=== PATIENT | female | born 1940 | race Caucasian/White ===

== ENCOUNTER → 2023-07-25 11:05 | Outpatient (REF) | payer MEDICARE, OTHER, SELFPAY ==
[2023-07-25 16:17] LABS: % Basophils 0.5 % (0-2); % Eosinophils 2.9 % (0-6); % Immature Granulocytes 0.4 % (0-0.5); % Lymphocytes 31.7 % (20.5-51.1); % Monocytes 6.3 % (1.7-9.3); % Neutrophils 58.2 % (42.2-75.2); Absolute Eosinophils 0.2 10^3/uL (0-0.7); Absolute Lymphocytes 2.3 10^3/uL (1.2-3.4); Absolute Monocytes 0.5 10^3/uL (0.1-0.6); Absolute Neutrophils 4.2 10^3/uL (1.4-6.5); Hematocrit 36.8 % (37.0-47.0); Hemoglobin 11.2 g/dL (12.0-16.0); Mean Corp Hgb Conc. 30.4 g/dL (33.0-37.0); Mean Corpuscular Hgb 18.2 pg (27.0-31.0); Mean Corpuscular Volume 59.8 fL (81.0-99.0); Nucleated Red Blood Cells % 0 %; Red Blood Cell Count 6.15 10^6/uL (4.20-5.40); Red Cell Dist. Width 18.6 % (11.5-14.5); White Blood Cell Count 7.3 10^3/uL (4.8-10.8)
[2023-07-25 16:32] LABS: ALT (SGPT) 21 U/L (0-35); AST (SGOT) 28 U/L (14-36); Albumin 4.2 g/dl (3.5-5.0); Alkaline Phosphatase 96 U/L (38-126); Blood Urea Nitrogen 19 mg/dl (7-17); Calcium 10.2 mg/dl (8.4-10.2); Carbon Dioxide 29 mmol/L (22-30); Chloride 108 mmol/L (98-107); Glucose 81 mg/dl (70-99); Iron 125 ug/dl (37-170); Sodium 138 mmol/L (135-145); Total Bilirubin 0.7 mg/dl (0.2-1.3); Total Protein 6.8 g/dl (6.3-8.2); eGFR > 60.00
[2023-07-25 16:37] LABS: Platelet Count 138 10^3/uL (130-400); Potassium 4.4 mmol/L (3.5-5.1)
[2023-07-25 16:40] LABS: Percent Saturation 41 % (20-50); Total Iron Binding Capacity 300 ug/dl (265-497)
[2023-07-25 16:59] LABS: TSH Reflex To Free T4 0.78 uIU/ml (0.47-4.68)
[2023-07-25 17:19] LABS: Vitamin B12 421 pg/ml (239-931)
== END ==
LOC: HWLAB 11:05
PROVIDERS: ATTENDING PHYSICIAN Student in an Organized Health Care Education/Training Program
DX: Z00.00 Encounter for general adult medical examination without abnormal findings (principal); D50.9 Iron deficiency anemia, unspecified; K64.3 Fourth degree hemorrhoids
CPT/HCPCS: 36415; 80053; 82607; 82728; 83540; 83550; 84443; 85025

== ENCOUNTER → 2023-11-01 09:48 | Outpatient (REF) | payer MEDICARE, OTHER, SELFPAY | LOC: HWRAD 09:48 | PROVIDERS: ATTENDING PHYSICIAN Internal Medicine Critical Care Medicine; FAMILY PHYSICIAN Student in an Organized Health Care Education/Training Program | DX: R91.8 Other nonspecific abnormal finding of lung field (principal) | CPT/HCPCS: 71250 ==

== ENCOUNTER 2023-11-16 19:11 | Emergency (ER) | payer MEDICARE, OTHER, SELFPAY ==
[2023-11-16 19:16] VITALS: BP 201/81
--- NOTE | 2023-11-16 21:05 | ED.MUSCINJ ---
HPI-Injury
General
Chief Complaint: Musculo-Skeletal Complaint
Source: patient
Exam Limitations: none
Time Seen by Provider: 11/16/23 20:49
Travel History
Have you had any contact with someone who has COVID-19?: No
Do you have any symptoms of coronavirus? Fever > 100 degrees, chills, cough, shortness of breath, sore throat, loss of taste or smell, muscle aches, or headache?: No
History of Present Illness-Injury
Initial Injury comments:
83-year-old [id number] female presents after mechanical fall. She slipped on wet floor and landed on her right hand she complains of right hand and wrist pain. She did not hit her head. No other complaints at this time
Past History
Past History
ED Past Medical History: None
ED Past Surgical History: None
Patient has exhibited threatening behavior?: No
PSI?: No
Phy Exam
Physical Exam
Physical Exam:
General: Well-appearing female no acute respiratory distress
HEENT: Normocephalic atraumatic
Musculoskeletal exam: Right hand swollen tender over the ulnar aspect of the hand no deformities or malrotation the right wrist is nontender
Neurologic: Good sensation right hand
Injury Course
Orders/Labs/Results
Orders:
Orders
11/16/23 19:17
CR Hand - Right Min 3 Views Urgent
Comment:
Reason For Exam: fall, injury
CR Wrist - Right Min 3 Views Urgent
Comment:
Reason For Exam: fall, injury
MDM/Problems Addressed
Differential Diagnosis Includes:
Right hand pain after fall. Consider fracture versus dislocation versus sprain
I personally visualized x-rays of the right wrist and hand which demonstrate a fracture of the fifth metacarpal.
I personally placed the patient in a ulnar gutter splint using cast padding 2 inch OCL and Klaus bandages. She was neurovascular intact after the splint was applied. She was referred to orthopedics for further evaluation
*Critical Care Note
Total Time (30-74mins, 75-104mins- exclusive of procedures): Not Applicable
ED Attending Note
-
Portions of this chart may have been created with voice recognition software.� Occasional wrong word or��sound alike� substitutions may have occurred due to the inherent limitations of voice recognition software.
Discharge Plan
Departure
Patient Disposition: Home (Routine Discharge)
Date of Disposition: 11/16/23
Time of Disposition: 21:07
Patient with high blood pressure during this ER visit?: No
Discharge Problem:
Fracture of hand
Instructions: Splint Care
Referrals:
Flroy Murray MD [Family Provider] -
Ambrosio Mayorga MD [Active] -
Activity Restrictions/Additional Instructions:
Keep splint on and dry. Elevate for swelling. Use Tylenol for pain. Follow-up with orthopedics for further evaluation
Interventions
Interventions:
*Risk Screen - Suicide Last Done: 11/16/23 19:15
*General Assessment Last Done: 11/16/23 19:15
*Neglect/Abuse Screening Last Done: 11/16/23 19:15
*ED COVID-19 Vaccine History Last Done: 11/16/23 19:15
Discharge Date and Time
Print Language: FAROESE
[2023-11-16 21:22] VITALS: BP 174/80
== END 2023-11-16 21:21 | disposition home or self-care (01) ==
LOC: EMR 19:11
PROVIDERS: EMERGENCY PHYSICIAN Student in an Organized Health Care Education/Training Program; FAMILY PHYSICIAN Student in an Organized Health Care Education/Training Program
DX: S62.394A Other fracture of fourth metacarpal bone, right hand, initial encounter for closed fracture (principal); S62.396A Other fracture of fifth metacarpal bone, right hand, initial encounter for closed fracture; W01.0XXA Fall on same level from slipping, tripping and stumbling without subsequent striking against object, initial encounter; M79.641 Pain in right hand; S69.91XA Unspecified injury of right wrist, hand and finger(s), initial encounter
CPT/HCPCS: 99283; 29125; 73110; 73130

== ENCOUNTER → 2024-09-24 09:32 | Outpatient (REF) | payer MEDICARE, OTHER, SELFPAY ==
[2024-09-24 12:50] LABS: % Basophils 0.5 % (0-2); % Eosinophils 3.8 % (0-6); % Immature Granulocytes 0.3 % (0-0.5); % Lymphocytes 27.8 % (20.5-51.1); % Monocytes 5.7 % (1.7-9.3); % Neutrophils 61.9 % (42.2-75.2); Absolute Eosinophils 0.2 10^3/uL (0-0.7); Absolute Lymphocytes 1.7 10^3/uL (1.2-3.4); Absolute Monocytes 0.3 10^3/uL (0.1-0.6); Absolute Neutrophils 3.7 10^3/uL (1.4-6.5); Hematocrit 39.7 % (37.0-47.0); Hemoglobin 11.8 g/dL (12.0-16.0); Mean Corp Hgb Conc. 29.7 g/dL (33.0-37.0); Mean Corpuscular Volume 60.4 fL (81.0-99.0); Nucleated Red Blood Cells % 0 %; Platelet Count 149 10^3/uL (130-400); Red Blood Cell Count 6.57 10^6/uL (4.20-5.40); Red Cell Dist. Width 18.5 % (11.5-14.5)
[2024-09-24 13:10] LABS: ALT (SGPT) 24 U/L (0-35); AST (SGOT) 26 U/L (14-36); Albumin 4.6 g/dl (3.5-5.0); Alkaline Phosphatase 94 U/L (38-126); Blood Urea Nitrogen 19 mg/dl (7-17); Calcium 11.2 mg/dl (8.4-10.2); Carbon Dioxide 28 mmol/L (22-30); Chloride 105 mmol/L (98-107); Glucose 82 mg/dl (70-99); Potassium 4.7 mmol/L (3.5-5.1); Sodium 142 mmol/L (135-145); Total Bilirubin 0.8 mg/dl (0.2-1.3); Total Protein 7.2 g/dl (6.3-8.2); eGFR > 60.00
== END ==
LOC: HWRAD 09:32
PROVIDERS: ATTENDING PHYSICIAN Internal Medicine; FAMILY PHYSICIAN Student in an Organized Health Care Education/Training Program
DX: M25.562 Pain in left knee (principal); D50.9 Iron deficiency anemia, unspecified
CPT/HCPCS: 36415; 73564; 80053; 85025

== ENCOUNTER → 2024-09-27 10:13 | Outpatient (REF) | payer MEDICARE, OTHER, SELFPAY ==
[2024-09-27 13:27] LABS: Calcium 10.6 mg/dl (8.4-10.2)
[2024-09-28 09:34] LABS: Intact PTH 164.4 pg/ml (13.6-85.8)
== END ==
LOC: HWLAB 10:13
PROVIDERS: ATTENDING PHYSICIAN Student in an Organized Health Care Education/Training Program
DX: E83.52 Hypercalcemia (principal)
CPT/HCPCS: 36415; 83970

== ENCOUNTER → 2024-11-01 09:02 | Outpatient (REF) | payer MEDICARE, OTHER, SELFPAY ==
[2024-11-01 12:57] LABS: Albumin 4.5 g/dl (3.5-5.0); Blood Urea Nitrogen 20 mg/dl (7-17); Calcium 10.7 mg/dl (8.4-10.2); Carbon Dioxide 27 mmol/L (22-30); Chloride 108 mmol/L (98-107); Glucose 77 mg/dl (70-99); Phosphorus 3.1 mg/dl (2.5-4.5); Potassium 4.4 mmol/L (3.5-5.1); Sodium 142 mmol/L (135-145); eGFR > 60.00
[2024-11-02 11:06] LABS: Intact PTH 86.9 pg/ml (13.6-85.8)
== END ==
LOC: HWRAD 09:02
PROVIDERS: ATTENDING PHYSICIAN Student in an Organized Health Care Education/Training Program
DX: E21.3 Hyperparathyroidism, unspecified (principal)
CPT/HCPCS: 36415; 76536; 80069; 83970

== ENCOUNTER → 2024-12-04 09:18 | Outpatient (REF) | payer MEDICARE, OTHER, SELFPAY ==
[2024-12-04 09:39] VITALS: BP 162/97; BP_SYST 55
[2024-12-04 10:25] VITALS: BP 151/97; BP_SYST 66
[2024-12-04 10:36] VITALS: BP 151/97
--- NOTE | 2024-12-04 10:53 | PTCARENOTE ---
IRAD note: [facility] Kaur was at bedside for left neck lesion biopsy but Dr. Russo didn't feel a need for [facility] for this biopsy. samples collected in [facility] using FNA.
== END ==
LOC: RADI 09:18
PROVIDERS: ATTENDING PHYSICIAN Student in an Organized Health Care Education/Training Program
DX: E04.1 Nontoxic single thyroid nodule (principal)
CPT/HCPCS: 88173; 88305; 10005

== ENCOUNTER → 2025-05-20 13:37 | Outpatient (REF) | payer MEDICARE, OTHER, SELFPAY | LOC: RAD 13:37 | PROVIDERS: ATTENDING PHYSICIAN Physician Assistant; FAMILY PHYSICIAN Student in an Organized Health Care Education/Training Program | DX: R07.9 Chest pain, unspecified (principal) | CPT/HCPCS: 71046 ==

== ENCOUNTER 2025-05-23 13:12 | Emergency (ER) | payer MEDICARE, OTHER, SELFPAY ==
[2025-05-23 13:14] VITALS: BP 149/99
[2025-05-23 13:50] LABS: Hematocrit 40.6 % (37.0-47.0); Hemoglobin 12.3 g/dL (12.0-16.0); Mean Corp Hgb Conc. 30.3 g/dL (33.0-37.0); Mean Corpuscular Volume 60.1 fL (81.0-99.0); Nucleated Red Blood Cells % 0 %; Platelet Count 146 10^3/uL (130-400); Red Cell Dist. Width 17.8 % (11.5-14.5)
[2025-05-23 13:55] LABS: ALT (SGPT) 21 U/L (0-35); AST (SGOT) 24 U/L (14-36); Albumin 4.7 g/dl (3.5-5.0); Alkaline Phosphatase 98 U/L (38-126); Blood Urea Nitrogen 20 mg/dl (7-17); Calcium 10.4 mg/dl (8.4-10.2); Carbon Dioxide 31 mmol/L (22-30); Chloride 103 mmol/L (98-107); Glucose 138 mg/dl (70-99); Lipase 74 U/L (23-300); Potassium 4.0 mmol/L (3.5-5.1); Sodium 137 mmol/L (135-145); Total Protein 7.6 g/dl (6.3-8.2); eGFR > 60.00
--- NOTE | 2025-05-23 16:50 | ED.GENMED ---
History of Present Illness
<Ruby Gaffney MD, Resident - Last Filed: 05/23/25 19:14>
General
Chief Complaint: Abdominal Pain
Source: patient
Time Seen by Provider: 05/23/25 16:15
History of Present Illness
History of Present Illness:
Patient is an 85-year-old female, with past medical history significant for chronic cough, lung nodules, porokeratosis, benign breast nodule s/p resection 1971, currently not taking any medications except fiber, vitamin D, and as needed famciclovir
for cold sores.
Healthcare with complaint of abdominal pain and left upper quadrant under the breast.
The pain has been there for last 3 weeks, rates 5/10, constant, dull in nature, and noticed it to radiate to his back today. Denies any rash/vesicles observed at any time, fall, trauma, fever, chills, shortness of breath, chest pain, body aches,
burning micturition, recent weight gain or loss.
Vitally stable.
Past History
<Ruby Gaffney MD, Resident - Last Filed: 05/23/25 19:14>
Past History
ED Past Medical History: None
ED Past Surgical History: None
Patient has exhibited threatening behavior?: No
PSI?: No
Social History
Tobacco: Former smoker
Alcohol: Occasional
Drug: None
Living: with family
Review of Systems
<Ruby Gaffney MD, Resident - Last Filed: 05/23/25 19:14>
Review of Systems
All Other Systems: ROS reviewed and negative except as documented in HPI and ROS
Phy Exam
<Ruby Gaffney MD, Resident - Last Filed: 05/23/25 19:14>
General Physical Exam
General Presentation: well appearing and no apparent distress
General age: appears stated age
General Skin: warm and dry
General Habitus: normal
General Mental: alert
Cardiovascular Exam
Cardiovascular Exam: regular rate/rhythm, no edema, no gallop and no murmur
Pulmonary Exam
Pulmonary Exam: lungs clear, no respiratory distress, no rales, no crackles and no rhonchi
Gastrointestinal Exam
Gastrointestinal Exam: normal bowel sounds, non tender and soft
Neurological Exam
Neurological Exam: alert, oriented x3 and no motor deficits
Musculoskeletal Exam
Musculoskeletal Exam: full ROM
Skin Exam
Skin Exam: normal color and warm/dry
Psychiatric Exam
Psychiatric Exam: normal mood/affect
Course
<Ruby Gaffney MD, Resident - Last Filed: 05/23/25 19:14>
Orders/Labs/Results
Orders:
Orders
05/23/25 13:27
Complete Blood Count/With Diff Urgent
Comprehensive Metabolic Panel Urgent
Lipase Urgent
05/23/25 14:43
ECG [Electrocardiogram (*1)] Urgent
Reason for Study: Abdominal Pain
EKG- Treatment ONCE
05/23/25 17:04
Troponin I Urgent
05/23/25 18:24
Valacyclovir HCl [Valtrex] 1,000 mg PO NOW ONE
Abnormal Lab Results
05/23/25
13:27
RBC 6.76 H 10^6/uL
(4.20-5.40)
MCV 60.1 L fL
(81.0-99.0)
MCH 18.2 L pg
(27.0-31.0)
MCHC 30.3 L g/dL
(33.0-37.0)
RDW 17.8 H %
(11.5-14.5)
Carbon Dioxide 31 H mmol/L
(22-30)
BUN 20 H mg/dl
(7-17)
Glucose 138 H mg/dl
(70-99)
Calcium 10.4 H mg/dl
(8.4-10.2)
05/23/25 13:27
05/23/25 13:27
Vital Signs
Initial and Last Documented VS:
Initial Vital Signs
Temp Pulse Resp BP Pulse Ox
98.0 F 84 18 149/99 97
05/23/25 13:14 05/23/25 13:14 05/23/25 13:14 05/23/25 13:14 05/23/25 13:14
Last Documented Vital Signs
Temp Pulse Resp BP Pulse Ox
98.6 F 66 18 194/78 97
05/23/25 17:15 05/23/25 18:30 05/23/25 18:30 05/23/25 17:15 05/23/25 18:30
<Tracy Tom MD - Last Filed: 05/23/25 18:26>
Orders/Labs/Results
Orders:
Orders
05/23/25 13:27
Complete Blood Count/With Diff Urgent
Comprehensive Metabolic Panel Urgent
Lipase Urgent
05/23/25 14:43
ECG [Electrocardiogram (*1)] Urgent
Reason for Study: Abdominal Pain
EKG- Treatment ONCE
05/23/25 17:04
Troponin I Urgent
05/23/25 18:24
Valacyclovir HCl [Valtrex] 1,000 mg PO NOW ONE
Abnormal Lab Results
05/23/25
13:27
RBC 6.76 H 10^6/uL
(4.20-5.40)
MCV 60.1 L fL
(81.0-99.0)
MCH 18.2 L pg
(27.0-31.0)
MCHC 30.3 L g/dL
(33.0-37.0)
RDW 17.8 H %
(11.5-14.5)
Carbon Dioxide 31 H mmol/L
(22-30)
BUN 20 H mg/dl
(7-17)
Glucose 138 H mg/dl
(70-99)
Calcium 10.4 H mg/dl
(8.4-10.2)
05/23/25 13:27
05/23/25 13:27
Vital Signs
Initial and Last Documented VS:
Initial Vital Signs
Temp Pulse Resp BP Pulse Ox
98.0 F 84 18 149/99 97
05/23/25 13:14 05/23/25 13:14 05/23/25 13:14 05/23/25 13:14 05/23/25 13:14
Last Documented Vital Signs
Temp Pulse Resp BP Pulse Ox
98.6 F 66 18 194/78 97
05/23/25 17:15 05/23/25 18:30 05/23/25 18:30 05/23/25 17:15 05/23/25 18:30
<Ruby Gaffney MD, Resident - Last Filed: 05/23/25 19:14>
MDM/Problems Addressed
Differential Diagnosis Includes:
Acute coronary syndrome
Shingles
Pancreatitis
Gastritis
IBS
Costochondritis
Splenic flexure syndrome
Splenic pathology from systemic disease for example infection/malignancy
UTI
Nephrolithiasis
MDM/Problems Addressed:
Cardiac testing including troponin, EKG came back normal. Lipase levels normal, signs and symptoms not suggestive of any nephrolithiasis/splenic pathology/IBS
On physical examination, dermatomal rash observed in the area of pain on back
Patient given a dose of Valtrex in the ER
Reassurance provided, continue Valtrex 1000 mg 3 times daily for 10 days along with gabapentin at nighttime for pain
Discussed that she can hang out with friends and family as long as her rash is covered
Advised to complete the course of antivirals
<Ruby Gaffney MD, Resident - Last Filed: 05/23/25 19:14>
*Pulse Oximetry
SaO2: 97
Oxygen Mode of Delivery: Room air
Patient hypoxic: no
*Critical Care Note
Total Time (30-74mins, 75-104mins- exclusive of procedures): Not Applicable
ED Attending Note
<Ruby Gaffney MD, Resident - Last Filed: 05/23/25 19:14>
-
Portions of this chart may have been created with voice recognition software.� Occasional wrong word or��sound alike� substitutions may have occurred due to the inherent limitations of voice recognition software.
<Tracy Tom MD - Last Filed: 05/23/25 18:26>
ED Attending Note
Patient seen and examined by attending physician: Yes
I performed a history and physical exam of patient and discussed management with resident, I reviewed resident's note and agree with documented findings and plan of care.: Yes
ED Attending Note:
85-year-old female with complaints of left upper quadrant pain that started approximately 3 weeks ago. The pain is without exacerbating relieving factors. She noticed some burping with that and thought it might be a 'gas pocket'. She took Mylanta
without relief of symptoms. She saw her primary and had a chest x-ray which was negative. She presents to the ER today because her doctor's office is not able to see her and she has continued symptoms which now is radiating around to the left back
area. She denies nausea, vomiting, anorexia, fever, chills urinary symptoms, chest pain, dyspnea, bleeding, or other complaints. On exam, patient has a obvious shingles appearing rash noted at the left flank area with questionable faded shingles
rash under the left breast. Does not cross midline. No other rashes or abnormalities noted. Abdomen soft and nontender. Diagnosis shingles, will Rx Valtrex and Neurontin, advised regarding avoiding and immunocompromise, close follow-up
Discharge Plan
Departure
Patient Disposition: Home (Routine Discharge)
Date of Disposition: 05/23/25
Time of Disposition: 18:56
Patient with high blood pressure during this ER visit?: No
Discharge Problem:
Shingles
Instructions: Shingles
Prescriptions:
New
gabapentin 300 mg capsule
300 mg PO HS PRN (Reason: moderate-severe pain) 7 Days Qty: 7 0RF
valacyclovir [Valtrex] 1 gram tablet
1,000 mg PO TID 10 Days Qty: 30 0RF
No Action
Metamucil Packet
1 packet PO UD DOSE PK
cholecalciferol (vitamin D3) [Vitamin D3] 25 mcg (1,000 unit) Tablet
25 mcg PO DAILY
Referrals:
Flory Murray MD [Family Provider, Internal Medicine]
Activity Restrictions/Additional Instructions:
COMPLETE ANTIVIRAL DOSE FOR SHINGLES
YOU CAN WEAR CLOTHES AND HANG OUT WITH FRIENDS AND FAMILY LONG YOUR RASH IS COVERED
USE GABAPENTIN FOR PAIN-IT CAN MAKE YOU SLEEPY-TAKE IT AT NIGHT TIME
PLEASE REPORT TO ER IN CASE OF SEVERE PAIN,CONFUSION,FEVER, SOB,CHEST PAIN ,COUGH OR ANY OTHER WORRISOME SIGNS
Interventions
Interventions:
*Risk Screen - Suicide Last Done: 05/23/25 13:14
*General Assessment Last Done: 05/23/25 13:14
*Neglect/Abuse Screening Last Done: 05/23/25 13:14
*ED- Fall Risk Assessment Last Done: 05/23/25 17:15
*ED COVID-19 Vaccine History Last Done: 05/23/25 17:15
*ED Influenza Vaccine History Last Done: 05/23/25 13:14
DI-Utozlx-Urojabthwg Assessment Last Done: 05/23/25 17:15
Discharge Date and Time
Print Language: MALTESE
[2025-05-23 16:59] VITALS: BMI 24.4
[2025-05-23 17:00] VITALS: BP 227/104
[2025-05-23 17:14] VITALS: BP 194/78
[2025-05-23 17:15] VITALS: BP 194/78
[2025-05-23 17:33] LABS: Troponin I 0.019 ng/ml
[2025-05-23] MEDS: VALTREX 1000 MG PO (18:39)
== END 2025-05-23 19:14 | disposition home or self-care (01) ==
LOC: EMR 13:12
PROVIDERS: Student in an Organized Health Care Education/Training Program; EMERGENCY PHYSICIAN Emergency Medicine; FAMILY PHYSICIAN Student in an Organized Health Care Education/Training Program
DX: B02.9 Zoster without complications (principal); R05.3 Chronic cough; Q82.8 Other specified congenital malformations of skin; Z87.891 Personal history of nicotine dependence
CPT/HCPCS: 99284; 80053; 83690; 84484; 85025; 93005